=== PATIENT | female | born 1975 | race Caucasian/White ===

== ENCOUNTER 2016-06-10 11:04 | Inpatient (IN) ==
[2016-06-10 11:37] LABS: BASOPHILS # (AUTO) 0.1 K/uL (0-0.2); BASOPHILS % (AUTO) 0.4 % (0.0-3.0); EOSINOPHILS # (AUTO) 0.1 K/ul (0.0-0.7); EOSINOPHILS % (AUTO) 0.4 % (0.0-7.0); HEMATOCRIT 44.9 % (37.0-47.0); HEMOGLOBIN 15.2 g/dl (12.0-16.0); IMMATURE GRANULOCYTE % (AUTO) 0.3 % (0.0-5.0); LYMPHOCYTES # (AUTO) 2.1 K/uL (0.60-3.4); LYMPHOCYTES % (AUTO) 15.7 (10.0-50.0); MEAN CORPUSCULAR HEMOGLOBIN 30.8 pg (27.0-31.0); MEAN CORPUSCULAR HGB CONC 33.9 (31.8-35.4); MEAN CORPUSCULAR VOLUME 90.9 fl (81.0-99.0); MONOCYTES # (AUTO) 0.7 K/uL (0.4-2.0); MONOCYTES % (AUTO) 5.5 (0-10); NEUTROPHILS # (AUTO) 10.3 K/ul (2.0-6.9); NEUTROPHILS % (AUTO) 77.7; PLATELET COUNT 437 10^3/uL (140-440); RED BLOOD COUNT 4.94 10^6/ul (4.20-5.40); WHITE BLOOD COUNT 13.22 K/ul (4.6-10.2)
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
[2016-06-10 12:18] LABS: ACETAMINOPHEN < 3 ug/ml (10-30); ALANINE AMINOTRANSFERASE 12 U/L (12-78); ALBUMIN 4.1 g/dL (3.4-5.0); ALBUMIN/GLOBULIN RATIO 1.11; ALKALINE PHOSPHATASE 83 U/L (42-98); ANION GAP 17.1; ASPARTATE AMINO TRANSFERASE 11 U/L (15-37); BILIRUBIN,TOTAL 0.42 mg/dL (0.00-1.20); BLOOD UREA NITROGEN 7 mg/dL (7-18); BUN/CREATININE RATIO 9.09; CALCIUM 9.8 mg/dL (8.2-10.2); CARBON DIOXIDE 22 mmol/L (21-32); CHLORIDE 106 mmol/L (98-107); CREATININE 0.77 mg/dL (0.60-1.30); GLUCOSE 104 mg/dL (70-110); POTASSIUM 4.1 mmol/L (3.5-5.10); SALICYLATE < 5.0 mg/dL (2.8-20.0); SODIUM 141 mmol/L (136-145); TOTAL PROTEIN 7.8 g/dL (6.4-8.2)
[2016-06-10 12:50] LABS: BILIRUBIN,URINE Negative (NEGATIVE); KETONES,URINE 1+ (NEGATIVE); LEUKOCYTE ESTERASE ,URINE 2+ (NEGATIVE); NITRITE,URINE Positive (NEGATIVE); PH,URINE 6.5 (5-9); PROTEIN,URINE 2+ (NEGATIVE); URINE, BLOOD 2+ (NEGATIVE)
[2016-06-10 12:51] LABS: URINE PREGNANCY INTERNAL QC INTERNAL QC VALID
[2016-06-10 12:59] LABS: ADD URINE MICROSCOPIC YES
[2016-06-10 13:00] LABS: BACTERIA,URINE 4+ (NOT PRESENT)
[2016-06-10] MEDS ORDERED: BACTRIM DS 800/160 MG PO STA (13:11)
[2016-06-10 13:12] LABS: COCAIN SCREEN,URINE NEGATIVE (NEGATIVE)
[2016-06-10] MEDS ORDERED: TYLENOL PO PRN (15:16)
[2016-06-10] MEDS ORDERED: ATIVAN IVP PRN (15:22)
[2016-06-10] MEDS ORDERED: ROCEPHIN 1 GM in SODIUM CHLORIDE 50 ML IV STA (15:23)
[2016-06-10] MEDS ORDERED: ROCEPHIN ONE (15:36)
[2016-06-10 17:43] VITALS: BMI 28.1
[2016-06-10] MEDS: SODIUM CHLORIDE 1,000 ML IV SCH (20:58)
[2016-06-11 05:29] LABS: BASOPHILS # (AUTO) 0.1 K/uL (0-0.2); BASOPHILS % (AUTO) 0.5 % (0.0-3.0); EOSINOPHILS % (AUTO) 0.4 % (0.0-7.0); HEMATOCRIT 40.6 % (37.0-47.0); HEMOGLOBIN 13.4 g/dl (12.0-16.0); IMMATURE GRANULOCYTE % (AUTO) 0.4 % (0.0-5.0); LYMPHOCYTES # (AUTO) 2.9 K/uL (0.60-3.4); LYMPHOCYTES % (AUTO) 27.6 (10.0-50.0); MONOCYTES # (AUTO) 0.9 K/uL (0.4-2.0); MONOCYTES % (AUTO) 8.8 (0-10); NEUTROPHILS # (AUTO) 6.5 K/ul (2.0-6.9); NEUTROPHILS % (AUTO) 62.3; PLATELET COUNT 392 10^3/uL (140-440); RED BLOOD COUNT 4.46 10^6/ul (4.20-5.40); WHITE BLOOD COUNT 10.46 K/ul (4.6-10.2)
[2016-06-11 05:54] LABS: ALBUMIN 3.7 g/dL (3.4-5.0); ALBUMIN/GLOBULIN RATIO 1.16; ANION GAP 13.5; BILIRUBIN,TOTAL 0.43 mg/dL (0.00-1.20); BUN/CREATININE RATIO 10.38; CALCIUM 9.4 mg/dL (8.2-10.2); CREATININE 0.77 mg/dL (0.60-1.30); POTASSIUM 3.5 mmol/L (3.5-5.10); TOTAL PROTEIN 6.9 g/dL (6.4-8.2)
[2016-06-11] MEDS ORDERED: ATIVAN IM STA (06:35)
[2016-06-11] MEDS ORDERED: ROCEPHIN 1 GM in SODIUM CHLORIDE 50 ML IV SCH (09:00)
--- NOTE | 2016-06-11 11:32 | PCM.PROG ---
Attending Provider: ATTENDING PROVIDER: Dr. ISAAC CARRILLO DATE OF SERVICE: 06/11/16 SUBJECTIVE: This 40 year old WHITE/ F was hospitalized 06/10/16. The patient is admitted with visual hallucinations, positive drug screen. Mental health came and evaluated the patient and wanted to wait until drugs are cleared from system. It is unclear if she takes drugs every day or just recreational user. It is difficult to get information from the patient. Per nurse, the patient has had visual and auditory hallucinations during the night. REVIEW OF SYSTEMS: CONSTITUTIONAL: No fever, no chills. ENDOCRINE: No weight loss or weight gain. HEENT: No sinus drainage, no sore throat. CVS: No angina symptoms. No CHF symptoms. No palpitations. No atypical chest pain for CAD. No shortness of breath. RESPIRATORY: No cough, no hemoptysis. GI: No melena. No abdominal pain. No nausea, no vomiting. : No hematuria. No polyuria. SKIN: No rash. No wounds. MUSCULOSKELETAL: No pain. WATCH ELECTRICIAN: No blackout, no dizziness. No headache. No double vision. PSYCHIATRIC: Not anxious; no depression. No suicidal thoughts. No homicidal thoughts. PHYSICAL EXAMINATION: GENERAL: The patient is awake and alert, appears calm and in no distress. VITAL SIGNS: Temperature 97.0 F, Pulse 102, Respiratory Rate 18, BP 122/83, Pulse Ox 98% HEENT: Normocephalic, atraumatic. Mucosa is dry, pallor positive. NECK: No JVP, no carotid bruit. No lymphadenopathy. CARDIAC: S1, S2, no S3. No murmur, gallop or regurgitation. LUNGS: Clear to auscultation. ABDOMEN: Soft, non-tender. Bowel sounds active. No rigidity, guarding or CVA tenderness. EXTREMITIES: No clubbing, cyanosis or edema. NEUROLOGIC: Awake, alert with some confusion. LYMPHATIC: No palpable lymph nodes SKIN: Not dry. Intact. MUSCULOSKELETAL: No joint swelling. LAB REVIEW: 06/11/16 05:21 06/11/16 05:21 06/11/16 05:21: WBC 10.46 H, RBC 4.46, Hgb 13.4, Hct 40.6, MCV 91.0, MCH 30.0, MCHC 33.0, RDW Coeff of [place] 12.2, Plt Count 392, Immature Gran % (Auto) 0.4, Neut % (Auto) 62.3, Lymph % (Auto) 27.6, [place] % (Auto) 8.8, Eos % (Auto) 0.4, Baso % (Auto) 0.5, Immature Gran # (Auto) 0.0, Neut # 6.5, Lymph # 2.9, [place] # 0.9, Eos # 0.0, Baso # 0.1, Sodium 136, Potassium 3.5, Chloride 104, Carbon Dioxide 22, Anion Gap 13.5, BUN 8, Creatinine 0.77, Estimated GFR (MDRD) 83.00, BUN/Creatinine Ratio 10.38, Glucose 116 H, Calcium 9.4, Total Bilirubin 0.43, AST 11 L, ALT 10 L, Alkaline Phosphatase 70, Total Protein 6.9, Albumin 3.7, Globulin 3.2, Albumin/Globulin Ratio 1.16 ASSESSMENT: 1. Drug overdose Methamphetamine 2. Visual hallucinations (schizophrenia) 3. History of depression PLAN: 1. Stop Cipro IV as there was no IV access 2. Cipro 250 mg twice a day p.o. 3. Encourage hydration 4. Mental Health consultation Plan and coordination of the patient's care discussed in the presence of After School Coordinator and nurse. CONDITION: Stable SCRIBED BY: REGLA GURROLA, Underground Mine Machinery Mechanic scribed while in presence of service performed by Dr. ISAAC CARRILLO on 06/11/16 ([id number])
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
[2016-06-11] MEDS: SODIUM CHLORIDE 1,000 ML IV SCH (17:14)
[2016-06-11] MEDS: CIPRO PO SCH ×2 (17:15→22:10)
[2016-06-11 18:52] LABS: COCAIN SCREEN,URINE NEGATIVE (NEGATIVE)
[2016-06-12 05:25] LABS: BASOPHILS # (AUTO) 0.1 K/uL (0-0.2); BASOPHILS % (AUTO) 0.4 % (0.0-3.0); EOSINOPHILS # (AUTO) 0.1 K/ul (0.0-0.7); EOSINOPHILS % (AUTO) 0.3 % (0.0-7.0); HEMATOCRIT 43.4 % (37.0-47.0); HEMOGLOBIN 14.3 g/dl (12.0-16.0); IMMATURE GRANULOCYTE % (AUTO) 0.4 % (0.0-5.0); LYMPHOCYTES # (AUTO) 3.6 K/uL (0.60-3.4); MEAN CORPUSCULAR HEMOGLOBIN 30.2 pg (27.0-31.0); MEAN CORPUSCULAR HGB CONC 32.9 (31.8-35.4); MEAN CORPUSCULAR VOLUME 91.8 fl (81.0-99.0); MONOCYTES % (AUTO) 6.3 (0-10); NEUTROPHILS # (AUTO) 10.3 K/ul (2.0-6.9); NEUTROPHILS % (AUTO) 68.6; PLATELET COUNT 407 10^3/uL (140-440); RED BLOOD COUNT 4.73 10^6/ul (4.20-5.40); WHITE BLOOD COUNT 15.03 K/ul (4.6-10.2)
[2016-06-12 06:05] LABS: ALBUMIN 3.6 g/dL (3.4-5.0); ALBUMIN/GLOBULIN RATIO 0.9; BILIRUBIN,TOTAL 0.34 mg/dL (0.00-1.20); BUN/CREATININE RATIO 10.38; CALCIUM 9.2 mg/dL (8.2-10.2); CREATININE 0.77 mg/dL (0.60-1.30); TOTAL PROTEIN 7.6 g/dL (6.4-8.2)
[2016-06-12] MEDS: CIPRO PO SCH (08:37)
[2016-06-12 11:28] VITALS: BP 112/74; TEMP 98.4
--- NOTE | 2016-06-13 14:28 | DS ---
DATE OF SERVICE: 06/12/16 FINAL DIAGNOSIS: 1. Acute drug abuse secondary to the Methamphetamine 2. Change in mental status secondary to the drug abuse 3. History of schizophrenia, Followed by Dr. Balderas in [place] 4. Depression 5. History of tubal ligation 6. Hysterectomy 7. Substance use DISCHARGE INSTRUCTIONS: Discharge patient home. The patient's father came and took the patient home. Devin Gracia is to provide transportation and safe environment for the patient. He promises that he will take her to the Dr. Balderas. Take home medication as provided. Do not take over the counter medication or any recreation drugs. The patient promises that she is not going to take any recreation drugs. MEDICATIONS AT DISCHARGE: Neurontin Hydrocodone Risperdal NEW PRESCRIPTIONS: None DIET INSTRUCTIONS: Regular ACTIVITY: As much as tolerated. SMOKING: Current smoker DISEASE SPECIFIC EDUCATION: Street drugs and the side effects been discussed Health condition Change in mental status been discussed with the patient and the patient's family HOSPITAL COURSE: Samreen Whitaker who is a 40 year old resident of [place] was seen wondering in [place] and was trying to enter [employer] [facility]. At that time the police was called and arrested and brought the patient to the emergency room. The patient was having visual hallucinations, seeing people in the room but not aggressive or trying to harm anyone. Initial evaluation showed drug test positive for the methamphetamine, amphetamine and opioids with a blood alcohol less than 10. Urine: Leukocyte esterase positive and nitrates positive. At that time the patient was admitted to the hospital and started on the IV fluids and the Bactrim DS. Rocephin could not be given because patient could not give access to the IV and she was pulling it off. The patient was under observation but overnight the patient will still like that and the patient was given oral medications. Slowly she was getting to the norms. Mental health came and evaluated the patient and they thought the patient was not at risk of hurting herself or anyone else and not a threat but given the patient's condition of hallucination and it particular that the patient's father has to promise us that he is going to provide fci for her. We tried to place the patient at a psychiatric unit but patient and patient's family refused to there as it was away from [place].By next day the patient was more awake, alert and was recognizing and naming the dates and person. She was no seeing any hallucination or delusions at that time. The patient promises that she wants to go then [place] made sure that her father came and took her with him and he assured that he would be taking her the doctor Dr. Balderas and she will be staying with the father until she gets better. TIME SPENT: More than 45 minutes today. CINDA
== END 2016-06-12 13:00 | disposition home or self-care (01) | DRG 885 ==
LOC: ED 11:04 → SCU 14:52
PROVIDERS: ADMIT Emergency Medicine; ATTEND Emergency Medicine
DX: F20.1 Disorganized schizophrenia (principal); F11.951 Opioid use, unspecified with opioid-induced psychotic disorder with hallucinations; E86.0 Dehydration; F17.210 Nicotine dependence, cigarettes, uncomplicated; Z86.59 Personal history of other mental and behavioral disorders
CPT/HCPCS: 36415; 80053; 80306; 80307; 81001; 81025; 84443; 85025; 87086; 87186; 93005; 93010; 96365; 99223; 99233; 99239; 99284